=== PATIENT | female | born 1990 | race Caucasian/White ===

== ENCOUNTER 2017-05-23 02:38 | Outpatient (CLI) | payer OTHER ==
[~2017-05-23 02:38] MED LIST: PRENAT PO
[2017-05-23 03:03] VITALS: BP 93/52; PULSE 90; RESP 18
--- NOTE | 2017-05-23 04:10 | RADRPT ---
PROCEDURE: Abdominal ultrasound, limited. CLINICAL INDICATION: Abdominal pain. TECHNIQUE: Multiple real-time images were acquired of the patient's right upper abdomen utilizing a high resolution transducer. COMPARISON: None FINDINGS: The liver demonstrates normal echogenicity and size measuring 18.7 cm. There is no focal mass or in trahepatic biliary ductal dilatation. The portal vein is patent. The gallbladder is not distended. Multiple echogenic gallstones are identified. There is no pericholecystic fluid or gallbladder wa ll thickening. The common bile duct measures 3.6 mm in maximal dimension. The visualized portions of the pancreas are unremarkable. No free fluid is identified. The right kidney is normal size and echogenicity measuring 10.4 cm. There is no focal renal mass or echogenic calculus identified. There is no obstructive uropathy. IMPRESSION: Cholelithiasis without ultrasound evidence of cholecystitis. .Johny Pacheco MD, MD Date Time Electronically viewed and signed by .Johny Pacheco MD, MD on 05/23/2017 04:09 .T/
--- NOTE | 2017-05-23 04:12 | RADRPT ---
PROCEDURE: Obstetrical ultrasound, limited. CLINICAL INDICATION: Pelvic pain. TECHNIQUE: Multiple sonographic images of the pelvis were obtained using transabdominal technique . Images were obtained with godoy scale and color Doppler. The images were reviewed on a PACS works tation. COMPARISON: No prior studies are available for comparison. FINDINGS: There is a single living intrauterine gestation with the fetus in a breech presentation. hear t tones of 166 beats per minute are identified. The placenta is anterior in location, grade 1. The re is no evidence of placenta previa or abruption. Measurements were made in order to determine age. The results are as follows: BPD =7.21 cm HC =26.24 cm AC =25.38 cm FL =5.54 cm. Estimated gestational age of approximately 29 weeks and 1 day. The estimated date of delivery is 08/07/2017. The EFW = 1369 +/- 205 grams. Estimated weight percentage equals 47.7%. IMPRESSION: Single viable intrauterine gestation of approximately 29 weeks and 1 day, with an ultrasound IFRAH of 08/07/2017. .Johny Pacheco MD, MD Date Time Electronically viewed and signed by .Johny Pacheco MD, MD on 05/23/2017 04:11 .T/
[2017-05-23 04:49] LABS: BASOPHILS % 0.2 % (0.0-2.0); EOSINOPHILS # 0.1 10^3/ul (0.0-0.5); EOSINOPHILS % 0.9 % (0.0-7.0); HEMATOCRIT 28.6 % (37.0-47.0); HEMOGLOBIN 9.5 g/dl (12.0-16.0); LYMPHOCYTES # 1.6 10^3/ul (0.8-2.9); LYMPHOCYTES % 13.4 % (15.0-51.0); MEAN CORPUSCULAR HEMOGLOBIN 30.9 pg (29.0-33.0); MEAN CORPUSCULAR HGB CONC 33.2 g/dl (32.0-37.0); MEAN CORPUSCULAR VOLUME 93.2 fl (82.0-101.0); MEAN PLATELET VOLUME 11.9 fl (7.4-10.4); MONOCYTE # 0.7 10^3/ul (0.3-0.9); MONOCYTES % 5.8 % (0.0-11.0); NEUTROPHILS % 78.6 % (39.0-77.0); PLATELET COUNT 154 10^3/UL (140-415); RED BLOOD COUNT 3.07 10^6/ul (4.20-5.40); RED CELL DISTRIBUTION WIDTH 13.5 % (11.5-14.5)
[2017-05-23 05:08] LABS: ALBUMIN 3.3 g/dl (3.3-4.9); ALBUMIN/GLOBULIN RATIO 1.1; BILIRUBIN,INDIRECT 0.2 mg/dl (0-1.1); BILIRUBIN,TOTAL 0.2 mg/dl (0.2-1.3); CALCIUM 8.6 mg/dl (8.4-10.2); CREATININE 0.42 mg/dl (0.44-1.00); POTASSIUM 3.8 mmol/L (3.5-5.1); TOTAL PROTEIN 6.3 g/dl (6.1-8.1); URIC ACID 2.4 mg/dl (3.1-7.9)
[2017-05-23 06:16] LABS: ADD UMIC NO; UR ASCORBIC ACID NEGATIVE (NEGATIVE); UR BILIRUBIN (Dip) NEGATIVE (NEGATIVE); UR BLOOD (Dip) NEGATIVE (NEGATIVE); UR CLARITY CLEAR (CLEAR); UR COLOR YELLOW (YELLOW); UR GLUCOSE (Dip) NEGATIVE (NEGATIVE); UR KETONES (Dip) NEGATIVE (NEGATIVE); UR LEUKOCYTE ESTERASE (Dip) NEGATIVE Leu/ul (NEGATIVE); UR NITRITE (Dip) NEGATIVE (NEGATIVE); UR SPECIFIC GRAVITY (Dip) 1.006 (1.003-1.030); UR TOTAL PROTEIN (Dip) NEGATIVE (NEGATIVE); UR UROBILINOGEN (Dip) NEGATIVE (NEGATIVE)
--- NOTE | 2017-05-23 07:06 | TRIAGE ---
OB Triage Datetime Report Generated by CPN: 05/23/2017 07:05 Datetime: 05/23/2017 06:20 Stage of : OB Triage Monitor Mode: External Resting Tone Lytton: Relaxed Heart Rate FHR Baseline Rate: 135 Monitor Mode: External US FHR Baseline Changes: No Baseline Change Variability: Moderate 6-25 bpm Accelerations: 15X15 Decelerations: None Category: Category I Pain Assessment Pain Scale: 0 Pain Presence: None/Denies Pain Type: N/A Datetime: 05/23/2017 05:24 Stage of : OB Triage Monitor Mode: External Resting Tone Lytton: Relaxed Heart Rate FHR Baseline Rate: 140 Monitor Mode: External US Datetime: 05/23/2017 05:09 Quality: Mild Resting Tone Lytton: Relaxed Heart Rate FHR Baseline Rate: 140 Monitor Mode: External US Variability: Moderate 6-25 bpm Accelerations: 15X15 Decelerations: None Category: Category I Datetime: 05/23/2017 04:55 Stage of : OB Triage Monitor Mode: External Quality: Mild Pattern: Normal: <= 5 Contractions in 10 Minutes Resting Tone Lytton: Relaxed Heart Rate FHR Baseline Rate: 140 Monitor Mode: External US FHR Baseline Changes: No Baseline Change Variability: Moderate 6-25 bpm Accelerations: 15X15 Decelerations: None Category: Category I Pain Assessment Pain Scale: 0 Pain Presence: None/Denies Pain Type: N/A Datetime: 05/23/2017 04:04 Stage of : OB Triage Monitor Mode: External Quality: Mild Resting Tone Lytton: Relaxed Heart Rate FHR Baseline Rate: 140 Monitor Mode: External US Category: Category I Datetime: 05/23/2017 03:53 EGA: 29.0 Datetime: 05/23/2017 03:07 Stage of : OB Triage Datetime: 05/23/2017 03:00 Time of Arrival: 05/23/2017 02:38 Arrived By: Stretcher; Ambulance Arrived From: Home Chief Complaint: hx c/s x1 c/o sudden severe apigastric pain and nausea starting 0200 Movement: Present Contractions: Denies/Absent Rupture of Membranes: Denies Vaginal Bleeding: None Vaginal Discharge: Denies Recent Sexual Intercouse: Denies Abdominal Trauma: Not Applicable Patient Complaints: Nausea; Epigastric Pain Time Provider Notified: 05/23/2017 02:55 Provider Notified: Dr Hadadian Initial Plan: EFM,CBC,UA,CMP,AMYLASE,LIPASE,EFW,BPP,ABD U/S Datetime: 05/23/2017 02:56 Stage of : OB Triage Datetime: 05/23/2017 02:51 Stage of : OB Triage Maternal Assessment Level of Consciousness: Fully Conscious Headache: Denies Blurred Vision: No Respiratory Effort: Unlabored Nausea/Vomiting: Present RUQ Epigastric Pain: Present Facial Edema: None Labor Evaluation Frequency: placed Monitor Mode: External Resting Tone Lytton: Relaxed Monitor Mode: External US Comments: FHT 140 Pain Assessment Pain Scale: 0 Pain Presence: None/Denies Pain Type: N/A Pain Assessment Comments: States no pain at present but 8/10 15 min ago
--- NOTE | 2017-05-24 08:27 | PREOPHP ---
DATE OF ADMISSION: 05/23/2017 CHIEF COMPLAINT: Severe abdominal pain and nausea. HISTORY OF PRESENT ILLNESS: Shena Mitchell is a 27-year-old 2, para 1-0-0-1, with history of previous , single intrauterine at 28 weeks and 1 days, brought by ambulance to triage. She states she had severe vaginal bleeding about 1 hour before calling the ambulance. She states never had this kind of pain. She states good movement. She denies vomiting, headache, shortness of breath, chest pain, vaginal bleeding, or leakage of fluid. Further she also denies urinary symptoms. PAST MEDICAL HISTORY: None. PAST SURGICAL HISTORY: delivery. SOCIAL HISTORY: She denies tobacco, alcohol or drug use. FAMILY HISTORY: Negative. She denies breast, uterine, ovarian or colon cancer in her family. ALLERGIES: NO KNOWN DRUG ALLERGIES. MEDICATIONS: None. PHYSICAL EXAMINATION: VITAL SIGNS: Blood pressure 110/67, pulse rate 70-minutes, respiratory rate 16-minutes, temperature 97.9. GENERAL: Comfortable, no acute distress, appropriate mood and affect. HEART: Regular rate and rhythm. No murmur. LUNGS: Clear to auscultation bilateral. ABDOMEN: Soft, nontender. No guarding or rebound. FLANK: No CVA tenderness bilaterally. EXTREMITIES: Mild edema. No varicose veins and thigh or calf tenderness bilateral. Homans sign negative. GENITOURINARY: heart rate 135 BPM, moderate with deceleration. Contractions none. IMPRESSION: A 27-year-old 2, para 1-0-0-1, with severe abdominal pain which currently is resolved. CBC, CMP, amylase and lipase performed which all were normal. OB ultrasound performed which date was consistent with LMP. Abdominal ultrasound performed which revealed cholelithiasis without signs of cholecystitis. The patient currently is stable. A copy of laboratory results and ultrasound given to patient. I strongly recommend follow up with her primary [employer] [facility] and also a general surgeon. heart rate is category I and the patient has no uterine contractions. Signs and symptoms of labor, pre- eclampsia, and discussed in detail with patient. She expressed understanding. All of her questions answered. She is discharged home in stable condition with follow up with her primary OB. Dictated By: Sanya Luna MD /fnt/anyi /Document#: [id number]
== END 2017-05-23 06:45 | disposition home or self-care (01) ==
LOC: OBT 02:38 → L-D 02:38 → OBT 06:45
PROVIDERS: ATTEND Obstetrics & Gynecology
DX: O26.893 Other specified pregnancy related conditions, third trimester (principal); Z3A.28 28 weeks gestation of pregnancy; R10.9 Unspecified abdominal pain
CPT/HCPCS: 76705; 76815; 80053; 80076; 81003; 82150; 83690; 84560; 85025; Z7500; G0463

== ENCOUNTER 2017-07-26 05:16 | Inpatient (IN) | payer OTHER ==
[~2017-07-26] VITALS: Ht 149.9 cm; Wt 65.0 kg
[2017-07-26 05:21] VITALS: Ht 149.9 cm; Wt 65.0 kg
[2017-07-26] MEDS ORDERED: MISOPROSTOL 200 MCG TAB PR PRN ×2 (05:30→12:30)
[2017-07-26] MEDS ORDERED: OXYTOCIN 30 UNITS/LR 500 ML IV SCH (05:30)
[2017-07-26] MEDS ORDERED: METHYLERGONOVINE 0.2 MG INJ IM PRN ×2 (05:30→12:30)
[2017-07-26] MEDS ORDERED: OXYTOCIN 30 UNITS/LR 500 ML IV PRN ×2 (05:30→12:30)
[2017-07-26] MEDS ORDERED: CARBOPROST 250 MCG INJ IM PRN ×2 (05:30→12:30)
[2017-07-26] MEDS: LACTATED RINGER'S 1,000 ML IV SCH ×2 (06:14→08:41)
[2017-07-26 06:31] LABS: BASOPHILS % 0.2 % (0.0-2.0); EOSINOPHILS # 0.1 10^3/ul (0.0-0.5); EOSINOPHILS % 0.7 % (0.0-7.0); HEMATOCRIT 32.6 % (37.0-47.0); HEMOGLOBIN 11.4 g/dl (12.0-16.0); LYMPHOCYTES % 24.8 % (15.0-51.0); MEAN CORPUSCULAR HEMOGLOBIN 31.9 pg (29.0-33.0); MEAN CORPUSCULAR VOLUME 91.3 fl (82.0-101.0); MEAN PLATELET VOLUME 11.8 fl (7.4-10.4); MONOCYTE # 0.6 10^3/ul (0.3-0.9); NEUTROPHIL # 5.3 10^3/ul (1.6-7.5); NEUTROPHILS % 66.4 % (39.0-77.0); PLATELET COUNT 142 10^3/UL (140-415); RED BLOOD COUNT 3.57 10^6/ul (4.20-5.40); RED CELL DISTRIBUTION WIDTH 13.1 % (11.5-14.5)
[2017-07-26 06:44] LABS: INR 0.97; PROTIME 12.9 Sec (12.2-14.2)
[2017-07-26] MEDS ORDERED: EPHEDrine SULFATE 50 MG/5 ML SYG ONE (07:00)
[2017-07-26] MEDS ORDERED: METOCLOPRAMIDE 10 MG INJ ONE (07:24)
[2017-07-26] MEDS ORDERED: FENTAnyl 50 MCG/ML VIAL ONE (07:24)
[2017-07-26] MEDS ORDERED: PHENYLephrine (100 MCG/ML) 5ML SYG ONE (07:24)
[2017-07-26] MEDS ORDERED: morphine SULFATE/PF (10 MG/10 ML) INJ ONE (07:25)
[2017-07-26] MEDS ORDERED: OXYTOCIN 10 UNIT INJ ONE (07:25)
[2017-07-26 07:42] VITALS: BP 107/57; PULSE 97; RESP 18
[2017-07-26] MEDS ORDERED: ONDANSETRON 4 MG INJ IV STA (08:10)
[2017-07-26] MEDS ORDERED: CITRIC ACID/SODIUM CITRATE 15 ML CUP PO ONE (08:10)
[2017-07-26] MEDS ORDERED: CITRIC ACID/SODIUM CITRATE 15 ML CUP ONE (08:11)
[2017-07-26] MEDS ORDERED: ONDANSETRON 4 MG INJ ONE (08:11)
[2017-07-26] MEDS: CEFAZOLIN 2 GM/50 ML (PMX) 50 ML IV SCH ×2 (08:15→08:39)
[2017-07-26] MEDS ORDERED: DEXAMETHASONE 4 MG/ML 1 ML INJ ONE (08:48)
[2017-07-26] MEDS ORDERED: IPRATROPIUM (NEB) 0.5 MG/2.5 ML AMP HHN PRN (09:00)
[2017-07-26] MEDS ORDERED: HYDROmorphONE (0.2 MG/ML) 10ML SYG IV PRN ×3 (09:00)
[2017-07-26] MEDS ORDERED: morphine 4 MG/ML VIAL IV PRN (09:00)
[2017-07-26] MEDS ORDERED: ALBUTEROL 0.083% (NEB) 2.5 MG/3 ML AMP HHN PRN (09:00)
[2017-07-26] MEDS ORDERED: LABETALOL HCL 20MG INJ IV PRN (09:00)
[2017-07-26] MEDS ORDERED: DIPHENHYDRAMINE 50 MG INJ IV PRN ×2 (09:00)
[2017-07-26] MEDS ORDERED: MEPERIDINE 25 MG INJ IV PRN (09:00)
[2017-07-26] MEDS ORDERED: OXYCODONE/ACETAMINOPHEN (5/325) TAB PO PRN ×3 (09:00→12:30)
[2017-07-26] MEDS ORDERED: NALOXONE (0.4 MG/ML) INJ IV PRN (09:00)
[2017-07-26] MEDS ORDERED: EPHEDrine SULFATE 50 MG/5 ML SYG IV PRN (09:00)
[2017-07-26] MEDS ORDERED: TRIMETHOBENZAMIDE 100 MG/ML VIAL IM PRN ×2 (09:00)
[2017-07-26] MEDS ORDERED: hydrALAzine 20 MG INJ IV PRN (09:00)
[2017-07-26] MEDS ORDERED: ONDANSETRON 4 MG INJ IV PRN ×2 (09:00)
[2017-07-26] MEDS ORDERED: NALBUPHINE HCL (10 MG/1 ML) INJ IV PRN (09:00)
[2017-07-26] MEDS ORDERED: FENTAnyl 50 MCG/ML VIAL IV PRN ×3 (09:00)
[2017-07-26] MEDS ORDERED: morphine 2 MG INJ IV PRN (09:00)
[2017-07-26] MEDS ORDERED: MIDAZOLAM 1 MG/ML 2 ML INJ ONE (09:06)
--- NOTE | 2017-07-26 09:23 | HP ---
Date/Time of Note Date/Time of Note DATE: 07/26/17 TIME: 08:31 OB - History Hx of Present Free Text/Dictation 27 years old female with EDC August 02, 2017 admitted to [facility] at 39 weeks gestation with a history of previous section, This patient has been under the care of the [facility] ,and her not complicated with gestational diabetes -induced hypertension pertinent findings during her care she has gallstones asymptomatic and mild anemia. Estimated Due Date: Aug 02, 2017 : 2 Para: 1 Care: Good Care Ultrasounds: Normal mid trimester US Obstetrical Complications: None Medical Complications: None Past Family/Social History * Past Medical, Surgical, Family and Obstetric Histories reviewed from chart. Rubella: immune RPR/VDRL: Negative GBS Status: Negative HBsAG: Negative OB Admission Exam Vital Signs Vital Signs Vital Signs Date Time Temp Pulse Resp B/P Pulse Ox O2 Delivery O2 Flow Rate FiO2 07/26/17 07:42 98.1 97 18 107/57 Room Air Physical Exam HEENT: WNL Heart: Rhythm Normal Lungs: Clear, Equal Abdomen: WNL Reflexes: Normal Cervical Dilatation: None Station: -2 Membranes: Intact Heart Rate: 130's Accelerations: Accelerations Present Decelerations: No Decelerations Varibility: Moderate Contractions on Admission: None Last 72 hours Lab Results CBC & BMP 07/26/17 06:14 OB Assessment/Plan Reason for admission: other (39 weeks history of previous admitted at 39 weeks gestation for repeat ) Other plan: 27 years old EDC August 02, 2017 history of previous admitted at 39 weeks gestation for repeat section complication of the surgery including but not limited bowel bladder injury infection hemorrhage wound hematoma wound infection has been discussed with the patient and she would like to proceed with the operation DURGA HOWARD MD Jul 26, 2017 09:23
--- NOTE | 2017-07-26 09:31 | OPR ---
Operative Report Planned Procedure Procedure date Jul 26, 2017 Procedure(s) Repeat section Performed by see signature line Solid Fiber Paster Operator Dr. NASIR HILL Anesthesiologist: Nitish Castaneda M.D. Pre-procedure diagnosis 39 weeks history of previous Anesthesia Type: spinal Post-Procedure Post-procedure diagnosis 39 weeks history of previous admitted to undergo repeat Findings Live Baby girl 8 and 9 Estimated Blood Loss: other (600 cc) Specimen(s) none Grafts/Implant(s) none Complication(s) none Pt Condition post procedure: stable Procedure Description Under satisfactory spinal anesthesia patient prepped and draped and placed in supine position. Pfannenstiel incision was made. Incision carried through the subcutaneous tissue. Fascia incised to the length of incision. Rectus muscle divided in midline. Peritoneum exposed and entered to a vertical incision. Exploration of abdomen revealed [gravid uterus at term normal-appearing tubes and ovaries.] Bladder flap was developed. Transverse incision was made in the lower segment of the uterus. Amniotic sac ruptured, [clear amniotic fluid noted. ] Live baby girl was delivered from unengaged vertex.Naso oropharyngeal suction was performed. Baby handed to the team for immediate attention. Patient received 20 units of Pitocin. Placenta delivered manually intact. Uterine cavity cleaned with a wet sponge and drainage established. Uterus closed in 2 layers using Monocryl #1 in continuous fashion. Peritoneal cavity irrigated with warm saline. Sponge needle instrument reported to be correct. Abdominal peritoneum closed with 2-0 chromic catgut continuously. Fascia closed with #1 PDS in a continuous fashion. Subcutaneous tissue irrigated with warm saline and approximated with 2-0 chromic catgut skin closed with N sorb. Estimated blood loss [600 cc]. Urine bag containing [200] mL of [clear] urine. Patient tolerated procedure well and transferred to recovery room in good condition. DURGA HOWARD MD Jul 26, 2017 09:31
[2017-07-26 12:10] VITALS: BP 117/66; PULSE 71; RESP 18
[2017-07-26] MEDS ORDERED: LANOLIN 7 GM TUBE TOP PRN (12:30)
[2017-07-26] MEDS ORDERED: HYDROCODONE/APAP (5/325) TAB PO PRN ×2 (12:30)
[2017-07-26] MEDS ORDERED: CEFAZOLIN 1 GM/50 ML (PMX) 50 ML IVPB SCH (12:30)
[2017-07-26 13:00] VITALS: BP 128/82; PULSE 76; RESP 18
[2017-07-26] MEDS: OXYTOCIN 30 UNITS/LR 500 ML IV SCH ×3 (14:06→22:25)
[2017-07-26 16:30] VITALS: BP 100/64; PULSE 103; RESP 16
[2017-07-26 20:25] VITALS: BP 97/53; PULSE 71; RESP 18
[2017-07-27] MEDS: OXYTOCIN 30 UNITS/LR 500 ML IV SCH ×2 (00:20→04:20)
[2017-07-27 00:25] VITALS: BP 102/66; PULSE 80; RESP 18
[2017-07-27] MEDS: KETOROLAC 30 MG INJ IV PRN ×2 (01:07→08:53)
[2017-07-27] MEDS: LACTATED RINGER'S 1,000 ML IV SCH ×2 (02:16→10:00)
[2017-07-27 04:20] VITALS: BP 96/55; PULSE 73; RESP 17
[2017-07-27] MEDS: IBUPROFEN 600 MG TAB PO SCH ×3 (06:00→17:32)
[2017-07-27 08:20] VITALS: BP 99/55; PULSE 70; RESP 17
[2017-07-27] MEDS: SENNA/DOCUSATE NA (8.6MG/50MG) TAB PO SCH ×2 (08:58→21:11)
[2017-07-27 09:55] LABS: BASOPHILS % 0.3 % (0.0-2.0); EOSINOPHILS % 0.4 % (0.0-7.0); HEMATOCRIT 28.4 % (37.0-47.0); HEMOGLOBIN 9.8 g/dl (12.0-16.0); LYMPHOCYTES # 1.9 10^3/ul (0.8-2.9); MEAN CORPUSCULAR HEMOGLOBIN 31.5 pg (29.0-33.0); MEAN CORPUSCULAR HGB CONC 34.5 g/dl (32.0-37.0); MEAN CORPUSCULAR VOLUME 91.3 fl (82.0-101.0); MONOCYTE # 0.6 10^3/ul (0.3-0.9); NEUTROPHIL # 7.7 10^3/ul (1.6-7.5); NEUTROPHILS % 74.7 % (39.0-77.0); PLATELET COUNT 146 10^3/UL (140-415); RED BLOOD COUNT 3.11 10^6/ul (4.20-5.40); RED CELL DISTRIBUTION WIDTH 13.2 % (11.5-14.5); WHITE BLOOD COUNT 10.3 10^3/ul (4.8-10.8)
--- NOTE | 2017-07-27 10:31 | QN ---
Documentation Comment Post day 1 Afebrile Vital signs are stable Abdomen soft incision dry,, bowel sounds present lochia normal,, extremities normal, ambulation encouraged. DURGA HOWARD MD Jul 27, 2017 10:31
[2017-07-27] MEDS: OXYCODONE/ACETAMINOPHEN (5/325) TAB PO PRN ×3 (12:34→22:25)
[2017-07-27 16:00] VITALS: BP 106/62; PULSE 89; RESP 17
[2017-07-27 20:00] VITALS: BP 103/60; PULSE 89; RESP 18
[2017-07-28] MEDS: OXYCODONE/ACETAMINOPHEN (5/325) TAB PO PRN ×3 (02:04→22:17)
[2017-07-28] MEDS: IBUPROFEN 600 MG TAB PO SCH ×5 (02:04→23:48)
[2017-07-28 04:00] VITALS: BP 98/52; PULSE 67; RESP 18
[2017-07-28 08:30] VITALS: BP 103/49; PULSE 70; RESP 20
[2017-07-28] MEDS: SENNA/DOCUSATE NA (8.6MG/50MG) TAB PO SCH ×2 (08:43→21:04)
--- NOTE | 2017-07-28 09:52 | QN ---
Documentation Comment Post day 2 Afebrile Vital signs are stable Abdomen soft, incision dry, bowel sounds present, had bowel movement, extremities normal, plan of a.m. discharge discussed. DURGA HOWARD MD Jul 28, 2017 09:52
[2017-07-28 15:57] VITALS: BP 103/56; PULSE 83; RESP 18
[2017-07-28 20:00] VITALS: BP 100/58; PULSE 88; RESP 18
[2017-07-29 04:00] VITALS: BP 105/72; PULSE 62; RESP 18
[2017-07-29] MEDS: IBUPROFEN 600 MG TAB PO SCH ×2 (05:31→13:51)
[2017-07-29 07:15] VITALS: BP 111/73; PULSE 69; RESP 19
[2017-07-29] MEDS: SENNA/DOCUSATE NA (8.6MG/50MG) TAB PO SCH (09:00)
[2017-07-29] MEDS ORDERED: DIPHTH/TET/ACEL PERTUSS (ADULT) 0.5 ML VIAL IM* ONE (09:00)
--- NOTE | 2017-07-29 11:30 | DS ---
Date/Time of Note Date/Time of Note DATE: 07/29/17 TIME: 11:25 Obstetrical Discharge Record Final Diagnosis Final Diagnosis: Term delivered Section Section: Repeat Complications Augmentation: No Induction: No Rupture of Membranes: No Condition on Discharge Physical Assessment Last Vitals: Current Medications Medications (Trade) Dose Ordered Sig/Castro Route PRN Reason Start Time Stop Time Status Last Admin Dose Admin Lactated Ringer's 1,000 ml @ 125 mls/hr Q8H IV 07/26/17 05:18 07/26/17 12:29 DC 07/26/17 06:14 Cefazolin Sodium/ Dextrose 50 ml @ 100 mls/hr ONCE IV 07/26/17 05:30 07/26/17 12:29 DC 07/26/17 08:15 Oxytocin/Lactated Ringer's 500 ml @ 125 mls/hr ONCE IV 07/26/17 05:30 07/26/17 12:29 DC 07/26/17 09:52 Oxytocin/Lactated Ringer's 500 ml @ 0 mls/hr ONCE PRN IV For Hemorrhage Management 07/26/17 05:30 07/26/17 12:29 DC Methylergonovine Maleate (Methergine) 0.2 mg ONCE PRN IM VAGINAL BLEEDING 07/26/17 05:30 07/26/17 12:29 DC Carboprost Tromethamine (Hemabate) 250 mcg ONCE PRN IM VAGINAL BLEEDING 07/26/17 05:30 07/26/17 12:29 DC Misoprostol (Cytotec) 1,000 mcg ONCE PRN DE VAGINAL BLEEDING 07/26/17 05:30 07/26/17 12:29 DC Fentanyl (Sublimaze) 100 mcg STK-MED ONCE .ROUTE 07/26/17 07:24 07/26/17 07:25 DC Phenylephrine HCl (Manish-Synephrine Inj Syg) 500 mcg STK-MED ONCE .ROUTE 07/26/17 07:24 07/26/17 07:25 DC Metoclopramide HCl (Reglan) 10 mg STK-MED ONCE .ROUTE 07/26/17 07:24 07/26/17 07:25 DC Oxytocin (Oxytocin) 10 units STK-MED ONCE .ROUTE 07/26/17 07:25 07/26/17 07:26 DC Morphine Sulfate (Duramorph) 10 mg STK-MED ONCE .ROUTE 07/26/17 07:25 07/26/17 07:26 DC Citric Acid/ Sodium Citrate (Bicitra) 30 ml ONCE ONCE PO 07/26/17 08:10 07/26/17 08:12 DC 07/26/17 08:15 Ondansetron HCl (Zofran Inj) 4 mg STK-MED ONCE .ROUTE 07/26/17 08:11 07/26/17 08:12 DC Ondansetron HCl (Zofran Inj) 4 mg ONCE STAT IV 07/26/17 08:10 07/26/17 08:13 DC 07/26/17 08:15 Citric Acid/ Sodium Citrate (Bicitra) 15 ml STK-MED ONCE .ROUTE 07/26/17 08:11 07/26/17 08:12 DC Hydromorphone HCl (Dilaudid (Rec)) 0.2 mg PACU ORDER PRN IV MILD PAIN LEVEL 1-3 07/26/17 09:00 07/26/17 12:29 DC Hydromorphone HCl (Dilaudid (Rec)) 0.4 mg PACU ORDER PRN IV MODERATE PAIN LEVEL 4-6 07/26/17 09:00 07/26/17 12:29 DC Hydromorphone HCl (Dilaudid (Rec)) 0.6 mg PACU ORDER PRN IV SEVERE PAIN LEVEL 7-10 07/26/17 09:00 07/26/17 12:29 DC Fentanyl (Sublimaze) 25 mcg PACU ORDER PRN IV MILD PAIN LEVEL 1-3 07/26/17 09:00 07/26/17 12:29 DC Fentanyl (Sublimaze) 50 mcg PACU ODER PRN IV MODERATE PAIN LEVEL 4-6 07/26/17 09:00 07/26/17 12:29 DC Fentanyl (Sublimaze) 75 mcg PACU ORDER PRN IV SEVERE PAIN LEVEL 7-10 07/26/17 09:00 07/26/17 12:29 DC Oxycodone/ Acetaminophen (Percocet (5/ 325)) 1 tab PACU ORDER PRN PO PAIN LEVEL 1-5 07/26/17 09:00 07/26/17 16:00 DC Oxycodone/ Acetaminophen (Percocet (5/ 325)) 2 tab PACU ORDER PRN PO PAIN LEVEL 6-10 07/26/17 09:00 07/26/17 16:00 DC Ondansetron HCl (Zofran Inj) 4 mg PACU ORDER PRN IV NAUSEA AND/OR VOMITING 07/26/17 09:00 07/26/17 12:29 DC Trimethobenzamide HCl (Tigan) 200 mg PACU ORDER PRN IM NAUSEA AND/OR VOMITING 07/26/17 09:00 07/26/17 12:29 DC Labetalol HCl (Labetalol) 5 mg PACU ORDER PRN IV HIGH BLOOD PRESSURE 07/26/17 09:00 07/26/17 12:29 DC Hydralazine HCl (Apresoline) 5 mg PACU ORDER PRN IV HIGH BLOOD PRESSURE 07/26/17 09:00 07/26/17 12:29 DC Ephedrine Sulfate 5 mg PACU ORDER PRN IV MAP LESS THAN 60 07/26/17 09:00 07/26/17 12:29 DC Albuterol (Proventil 0.083% (Neb)) 2.5 mg PACU ORDER PRN HHN WHEEZING 07/26/17 09:00 07/26/17 16:00 DC Ipratropium [place] (Atrovent 0.02% (Neb)) 0.5 mg PACU ORDER PRN HHN WHEEZING 07/26/17 09:00 07/26/17 12:29 DC Meperidine HCl (Demerol) 25 mg PACU ORDER PRN IV POST-OP RIGORS 07/26/17 09:00 07/26/17 12:29 DC Diphenhydramine HCl (Benadryl) 25 mg PACU ORDER PRN IV PRURITUS 07/26/17 09:00 07/26/17 16:00 DC Naloxone HCl (Narcan) 0.1 mg Q2M PRN IV FOR RESP RATE 8 OR LESS 07/26/17 09:00 07/27/17 08:59 DC Ketorolac Tromethamine (Toradol) 30 mg Q6H PRN IV PAIN 07/26/17 09:00 07/27/17 08:59 DC 07/27/17 08:53 Morphine Sulfate (morphine) 2 mg Q3H PRN IV PAIN LEVEL 1-5 07/26/17 09:00 07/27/17 08:59 DC Morphine Sulfate (morphine) 4 mg Q3H PRN IV PAIN LEVEL 6-10 07/26/17 09:00 07/27/17 08:59 DC Diphenhydramine HCl (Benadryl) 25 mg Q6H PRN IV ITCHING 07/26/17 09:00 07/27/17 08:59 DC 07/26/17 12:51 Nalbuphine HCl (Nubain) 5 mg ONCE PRN IV ITCHING 07/26/17 09:00 07/26/17 12:29 DC Ondansetron HCl (Zofran Inj) 4 mg Q6H PRN IV NAUSEA AND/OR VOMITING 07/26/17 09:00 07/27/17 08:59 DC Trimethobenzamide HCl (Tigan) 200 mg Q6H PRN IM NAUSEA AND/OR VOMITING 07/26/17 09:00 07/27/17 08:59 DC Miscellaneous Information (* Miscellaneous Pharmacy Order) Duramorph: 0.2 mg Spi... GIVEN XX 07/26/17 09:00 07/26/17 12:29 DC Dexamethasone (Decadron) 4 mg STK-MED ONCE .ROUTE 07/26/17 08:48 07/26/17 08:49 DC Midazolam HCl (Versed) 2 mg STK-MED ONCE .ROUTE 07/26/17 09:06 07/26/17 09:07 DC Acetaminophen/ Hydrocodone Bitart (Meta (5/325)) 1 tab Q4H PRN PO PAIN LEVEL 4-6 07/26/17 12:30 Acetaminophen/ Hydrocodone Bitart (Meta (5/325)) 2 tab Q4H PRN PO PAIN LEVEL 7-10 07/26/17 12:30 Oxycodone/ Acetaminophen (Percocet (5/ 325)) 1 tab Q4H PRN PO PAIN LEVEL 4-6 07/26/17 12:30 Oxycodone/ Acetaminophen (Percocet (5/ 325)) 2 tab Q4H PRN PO PAIN LEVEL 7-10 07/26/17 12:30 07/28/17 22:17 Ibuprofen (Motrin) 600 mg Q6 PO 07/27/17 06:00 07/29/17 05:31 Simethicone (Mylicon) 160 mg Q8H PRN PO DISTENSION/GAS/BLOATING 07/26/17 12:30 Senna/Docusate Sodium (Senokot-S) 1 tab BID PO 07/27/17 09:00 07/28/17 21:04 Lanolin (Gyy-B-Qdxano) 1 applic BEDSIDE MEDICATION PRN TOP BEDSIDE FOR ERASMO TO NIPPLES 07/26/17 12:30 07/26/17 12:52 Diphtheria/ Tetanus/Acell Pertussis 0.5 ml 0.5 ml ONCE ONCE IM* 07/29/17 09:00 07/29/17 09:01 DC Oxytocin/Lactated Ringer's 500 ml @ 0 mls/hr ONCE PRN IV For Hemorrhage Management 07/26/17 12:30 Methylergonovine Maleate (Methergine) 0.2 mg ONCE PRN IM VAGINAL BLEEDING 07/26/17 12:30 Carboprost Tromethamine (Hemabate) 250 mcg ONCE PRN IM VAGINAL BLEEDING 07/26/17 12:30 Misoprostol 1000 mcg 1,000 mcg ONCE PRN DE VAGINAL BLEEDING 07/26/17 12:30 Cefazolin Sodium 50 ml @ 100 mls/hr ONCE IVPB 07/26/17 12:30 07/26/17 12:59 DC 07/26/17 12:52 Oxytocin/Lactated Ringer's 500 ml @ 125 mls/hr Q4H IV 07/26/17 12:20 07/27/17 04:28 DC 07/26/17 22:25 Lactated Ringer's (Lr) 1,000 ml @ 125 mls/hr Q8H IV 07/27/17 02:00 07/27/17 13:53 DC 07/27/17 02:16 Ephedrine Sulfate 50 mg STK-MED ONCE .ROUTE 07/26/17 07:00 07/27/17 17:53 DC Voiding: Yes Bowel Movement: Yes Breast: Soft, non-tender Abdomen and Incision: Healing well Episiotomy: Prescription given for pain lanolin cream was recommended to be used on her nipples The will be seen by the scientific research manager possibly discharge home with the mother Calf Tenderness: No Patient Condition: Good MCKENNA VALERIO MD Jul 29, 2017 11:30
== END 2017-07-29 15:40 | disposition home or self-care (01) | DRG 766 ==
LOC: L-D 05:16 → PP1 12:21
PROVIDERS: ADMIT Obstetrics & Gynecology; ATTEND Obstetrics & Gynecology
PROC: 10D00Z1 Extraction of Products of Conception, Low, Open Approach (ICD-10-PCS; principal; 2017-07-26 07:30)
DX: O34.219 Maternal care for unspecified type scar from previous cesarean delivery (principal); Z37.0 Single live birth; Z3A.39 39 weeks gestation of pregnancy
CPT/HCPCS: 85025; 85610; 85730; 86592; 86850; 86900; 86901; 87340; 90715; 94760; 99464; J0690; J1100; J1200; J1885; J2210; J2250; J2274; J2370; J2405; J2590; J2765; J3010; J7120

== ENCOUNTER 2017-08-03 22:45 | Emergency (ER) | payer OTHER ==
[~2017-08-03] VITALS: Ht 157.5 cm; Wt 55.7 kg
[2017-08-03 22:48] VITALS: Ht 157.5 cm; Wt 55.7 kg
[2017-08-03] MEDS ORDERED: ONDANSETRON 4 MG INJ IV STA (23:01)
[2017-08-03] MEDS ORDERED: morphine 4 MG/ML VIAL IV STA (23:01)
[2017-08-03] MEDS ORDERED: SOD CHLORIDE 0.9% 1,000 ML IV STA (23:01)
[2017-08-03 23:58] LABS: BASOPHILS % 0.3 % (0.0-2.0); EOSINOPHILS # 0.2 10^3/ul (0.0-0.5); EOSINOPHILS % 1.2 % (0.0-7.0); HEMATOCRIT 36.9 % (37.0-47.0); HEMOGLOBIN 12.5 g/dl (12.0-16.0); LYMPHOCYTES % 15.4 % (15.0-51.0); MEAN CORPUSCULAR HEMOGLOBIN 31.2 pg (29.0-33.0); MEAN CORPUSCULAR HGB CONC 33.9 g/dl (32.0-37.0); MEAN PLATELET VOLUME 11.9 fl (7.4-10.4); MONOCYTE # 0.8 10^3/ul (0.3-0.9); MONOCYTES % 5.8 % (0.0-11.0); PLATELET COUNT 308 10^3/UL (140-415); RED BLOOD COUNT 4.01 10^6/ul (4.20-5.40); RED CELL DISTRIBUTION WIDTH 12.3 % (11.5-14.5); WHITE BLOOD COUNT 13.1 10^3/ul (4.8-10.8)
--- NOTE | 2017-08-04 00:13 | RADRPT ---
PROCEDURE: LIMITED ABDOMINAL ULTRASOUND OF GALL BLADDER CLINICAL INDICATION: 27 years of age, female. Abdominal pain. TECHNIQUE: Multiple real-time longitudinal and transverse images of the gallbladder and the bile d ucts were acquired utilizing a curved array transducer. Images were reviewed on a high-resolution [facility] workstation. COMPARISON: None available. FINDINGS: Pancreas: Visualized portions normal. Liver appearance: Normal. Liver length: 19.9 cm Bile Ducts: No intrahepatic or extrahepatic biliary ductal dilatation. CBD: 0.95 cm. Gallbladder: Multiple stones layer dependently in the gallbladder. Gallbladder wall measures 2.9 mm. Main portal vein is patent with hepatopetal flow. Right kidney length: 11.2 cm. Right kidney appearance: Normal. Other: None. IMPRESSION: 1. Cholelithiasis without evidence of gallbladder wall inflammation. [employer] does not indicate i f there is point tenderness over the gallbladder. Recommend clinical correlation to rule out clinica l cholecystitis. 2. Dilated common bile duct. Recommend correlation with liver tests to evaluate for potential biliar y stasis. MRCP could better evaluate for common duct stones. 3. Mild hepatomegaly. RPTAT: HCTS Physician Emanuel Date Time Electronically viewed and signed by Physician Emanuel on 08/04/2017 00:13 /
[2017-08-04 00:58] LABS: ALBUMIN 3.5 g/dl (3.3-4.9); ALBUMIN/GLOBULIN RATIO 1.12; BILIRUBIN,INDIRECT 0.4 mg/dl (0-1.1); BILIRUBIN,TOTAL 0.4 mg/dl (0.2-1.3); CALCIUM 8.6 mg/dl (8.4-10.2); CREATININE 0.63 mg/dl (0.44-1.00); INR 1.06; POTASSIUM 3.7 mmol/L (3.5-5.1); PROTIME 13.8 Sec (12.2-14.2); PT RATIO 1.1; TOTAL PROTEIN 6.6 g/dl (6.1-8.1)
[2017-08-04 00:59] LABS: PARTIAL THROMBOPLASTIN TIME 31.7 Sec (25.0-35.0)
[2017-08-04] MEDS ORDERED: ONDA4TAB14 PO (01:48)
[2017-08-04] MEDS ORDERED: HYDR-906 PO (01:48)
[2017-08-04 02:00] VITALS: BP 121/82; PULSE 70; RESP 18; TEMP 97.8
--- NOTE | 2017-08-04 02:57 | ERD ---
ER Documentation Chief Complaint Chief Complaint RUQ abd pain since 40 minutes ago, hx- gall stones, sp csection 1 week ago (CEE CARBONE PA-C) HPI This patient is a 27-year-old female with past medical history of gallstones presenting to the emergency department with complaints of right upper quadrant pain which onset suddenly 40 minutes ago after a fatty meal. Symptoms are constant, 10 out of 10 on the pain scale. Associated with vomiting. No fevers , chills, or other symptoms reported at this time. (CEE CARBONE PA-C) ROS All systems reviewed and are negative except as per history of present illness. (CEE CARBONE PA-C) Medications Home Meds Active Scripts Ondansetron (Ondansetron Odt) 4 Mg Tab.rapdis, 4 MG PO Q6H Y for NAUSEA AND/OR VOMITING, #15 TAB Prov:CEE CARBONE PA-C 08/04/17 Hydrocodone/Acetaminophen (Cameron 5-325 Tablet) 1 Each Tablet, 1 TAB PO Q6H Y for PAIN, #15 TAB Prov:CEE CARBONE PA-C 08/04/17 Reported Medications Multivit/Min/Fol Ac/Iron/Pren* ( S*) 1 Tab Tab, 1 TAB PO DAILY, TAB 08/12/15 Allergies Allergies: Coded Allergies: No Known Allergy (Unverified , 07/26/17) PMhx/Soc Hx Miscellaneous Medical Probl: Yes (Gallstones) Hx Alcohol Use: No Hx Substance Use: No Hx Tobacco Use: No Smoking Status: Never smoker (CEE CARBONE PA-C) Physical Exam Vitals Vital Signs Date Time Temp Pulse Resp B/P Pulse Ox O2 Delivery O2 Flow Rate FiO2 08/04/17 02:00 97.8 70 18 121/82 Room Air 08/03/17 22:48 99.2 57 20 107/57 100 (AGATHA THOMPSON MD) Physical Exam Const: Nontoxic female actively vomiting. Head: Atraumatic Eyes: Normal Conjunctiva ENT: Normal External Ears, Nose and Mouth. Neck: Full range of motion..~ No meningismus. Resp: Clear to auscultation bilaterally Cardio: Regular rate and rhythm, no murmurs Abd: She is actively vomiting. Abdomen is soft. Tenderness palpation of the right upper quadrant. Positive Mishra sign. No distention. No evidence of gross peritonitis. Normal bowel sounds Skin: No petechiae or rashes Ext: No cyanosis, or edema Neur: Awake and alert Psych: Normal Mood and Affect (CEE CARBONE PA-C) Result Diagram: 08/03/17 2313 08/03/17 0018 Results 24 hrs Laboratory Tests Test 08/03/17 00:18 08/03/17 23:13 Prothrombin Time 13.8Sec Prothrombin Time Ratio 1.1 INR International Normalized Ratio 1.06 Activated Partial Thromboplast Time 31.7Sec Sodium Level 143mmol/L Potassium Level 3.7mmol/L Chloride Level 109mmol/L Carbon Dioxide Level 25mmol/L Anion Gap 13 Blood Urea Nitrogen 12mg/dl Creatinine 0.63mg/dl Glucose Level 112mg/dl Calcium Level 8.6mg/dl Total Bilirubin 0.4mg/dl Direct Bilirubin 0.00mg/dl Indirect Bilirubin 0.4mg/dl Aspartate Amino Transf (AST/SGOT) 32IU/L Alanine Aminotransferase (ALT/SGPT) 42IU/L Alkaline Phosphatase 112IU/L Total Protein 6.6g/dl Albumin 3.5g/dl Globulin 3.10g/dl Albumin/Globulin Ratio 1.12 Lipase 89U/L White Blood Count 13.110^3/ul Red Blood Count 4.0110^6/ul Hemoglobin 12.5g/dl Hematocrit 36.9% Mean Corpuscular Volume 92.0fl Mean Corpuscular Hemoglobin 31.2pg Mean Corpuscular Hemoglobin Concent 33.9g/dl Red Cell Distribution Width 12.3% Platelet Count 55597^3/UL Mean Platelet Volume 11.9fl Neutrophils % 77.0% Lymphocytes % 15.4% Monocytes % 5.8% Eosinophils % 1.2% Basophils % 0.3% Nucleated Red Blood Cells % 0.0/100WBC Neutrophils # 10.010^3/ul Lymphocytes # 2.010^3/ul Monocytes # 0.810^3/ul Eosinophils # 0.210^3/ul Basophils # 0.010^3/ul Nucleated Red Blood Cells # 0.010^3/ul Current Medications Medications (Trade) Dose Ordered Sig/Castro Route PRN Reason Start Time Stop Time Status Last Admin Dose Admin Sodium Chloride (NS) 1,000 ml @ 1,000 mls/hr Q1H STAT IV 08/03/17 23:01 08/04/17 00:00 DC 08/03/17 23:25 Morphine Sulfate (morphine) 4 mg ONCE STAT IV 08/03/17 23:01 08/03/17 23:02 DC 08/03/17 23:24 Ondansetron HCl (Zofran Inj) 4 mg ONCE STAT IV 08/03/17 23:01 08/03/17 23:02 DC 08/03/17 23:24 (AGATHA THOMPSON MD) Procedures/MDM Patient is a pleasant 27-year-old female presenting to the emergency department with complaints of right upper quadrant pain and vomiting. The patient was placed on a stretcher and IV line established. She was given IV fluids 1 L, IV morphine, IV Zofran. She was feeling significantly improved on reevaluation approximately 20 minutes after administration of medicine. On review of laboratory results: CBC showed mild leukocytosis at 13.1. No evidence of anemia. Chemistry panel was within normal limits. Lipase was not elevated. Imaging results: Gallbladder ultrasound did show cholelithiasis without evidence of gallbladder wall inflammation. Dilated common bile duct. Recommend correlation with liver test to evaluate for potential biliary stasis. MRCP could better evaluate for common duct stones. Mild hepatomegaly. On receiving results from imaging studies and laboratory studies, I discussed the results with attending physician, Dr. Bharat Thompson, who is in agreement of the ED course to this point. Due to the patient's pain stabilizing in the department, and with her being on board with the plan, he did recommend close follow-up with general surgery to have further consultation. The patient's questions and concerns were addressed. She was hemodynamically stable prior to discharge. She was advised to have close follow-up with general surgery within the next 1-2 days as well as her primary care physician she is to return immediately for any new or worsening symptoms. She was discharged home stable with prescriptions. No evidence of life-threatening pathology at time of discharge. PROCEDURE: LIMITED ABDOMINAL ULTRASOUND OF GALL BLADDER CLINICAL INDICATION: 27 years of age, female. Abdominal pain. TECHNIQUE: Multiple real-time longitudinal and transverse images of the gallbladder and the bile ducts were acquired utilizing a curved array transducer. Images were reviewed on a high-resolution PACS workstation. COMPARISON: None available. FINDINGS: Pancreas: Visualized portions normal. Liver appearance: Normal. Liver length: 19.9 cm Bile Ducts: No intrahepatic or extrahepatic biliary ductal dilatation. CBD: 0.95 cm. Gallbladder: Multiple stones layer dependently in the gallbladder. Gallbladder wall measures 2.9 mm. Main portal vein is patent with hepatopetal flow. Right kidney length: 11.2 cm. Right kidney appearance: Normal. Other: None. IMPRESSION: 1. Cholelithiasis without evidence of gallbladder wall inflammation. Tow Driver does not indicate if there is point tenderness over the gallbladder. Recommend clinical correlation to rule out clinical cholecystitis. 2. Dilated common bile duct. Recommend correlation with liver tests to evaluate for potential biliary stasis. MRCP could better evaluate for common duct stones. 3. Mild hepatomegaly. RPTAT: HCTS Physician Emanuel Date Time Electronically viewed and signed by Physician Emanuel on 08/04/2017 00: 13 (CEE CARBONE PA-C) I evaluated this patient, a 27-year-old female with right upper quadrant pain in the setting of known gallstones. Her ultrasound did not show evidence of cholecystitis. There was dilated common bile duct, but the patient's LFTs including bilirubin and alk phos were within normal limits. Approximately 2 hours after receiving pain medication, the patient stated that she has had complete resolution of pain and no recurrence. She has a completely benign abdominal exam. She is able to tolerate oral intake without recurrence of pain or vomiting. I have low suspicion for choledocholithiasis due to the absence of symptoms at this time. I cannot exclude early biliary obstruction. The patient has no evidence of pancreatitis. Patient was advised on the need for close follow-up with your PMD for referral to gastroenterology and surgeon. I recommended having either repeat ultrasound and/or repeat LFTs performed within the next few days. I advised her on strict return precautions including for return of pain, vomiting, fever, jaundice or other concerns. Patient understood the importance of follow-up and return precautions. She is counseled on eating a low-fat diet. (AGATHA THOMPSON MD) Departure Diagnosis: Primary Impression: Gall stones Condition: Fair Patient Instructions: Gallstones Referrals: ELLY ARIZMENDI MD, DANIEL S M.D. HEMMATI, SAID MD KOSARI, KAMBIZ M.D. [facility] [place] YOU HAVE RECEIVED A MEDICAL SCREENING EXAM AND THE RESULTS INDICATE THAT YOU DO NOT HAVE A CONDITION THAT REQUIRES URGENT TREATMENT IN THE EMERGENCY DEPARTMENT. FURTHER EVALUATION AND TREATMENT OF YOUR CONDITION CAN WAIT UNTIL YOU ARE SEEN IN YOUR DOCTORS OFFICE WITHIN THE NEXT 1-2 DAYS. IT IS YOUR RESPONSIBILITY TO MAKE AN APPOINTMENT FOR FOLOW-UP CARE. IF YOU HAVE A PRIMARY DOCTOR --you should call your primary doctor and schedule and appointment IF YOU DO NOT HAVE A PRIMARY DOCTOR YOU CAN CALL OUR PHYSICIAN REFERRAL HOTLINE AT . IF YOU CAN NOT AFFORD TO SEE A PHYSICIAN YOU CAN CHOSE FROM THE FOLLOWING [facility] INSTITUTIONS: [facility] [address] [place] [address] [facility] [address] [place] [address] [facility] [address] [place] [address] Additional Instructions: Call your primary care doctor TOMORROW for an appointment during the next 1-2 days.See the doctor sooner or return here if your condition worsens before your appointment time. Call your primary care doctor TOMORROW for an appointment during the next 2-3 days.Tell the social secretary that you were referred from this facility. See the doctor sooner or return here if your condition worsens before your appointment time. CEE CARBONE PA-C Aug 04, 2017 02:57 AGATHA THOMPSON MD Aug 04, 2017 03:26
== END 2017-08-04 02:06 | disposition home or self-care (01) ==
LOC: FTE 22:45
DX: K80.20 Calculus of gallbladder without cholecystitis without obstruction (principal)
CPT/HCPCS: 36415; 76705; 80053; 83690; 85025; 85610; 85730; 96374; 96375; J2270; J2405; J7030; Z7502

== ENCOUNTER 2018-02-10 17:12 | Inpatient (IN) | END 2018-02-11 19:00 | disposition home or self-care (01) | DRG 501 ==

== ENCOUNTER 2018-12-21 07:30 | Inpatient (IN) | payer OTHER ==
[~2018-12-21] VITALS: Ht 147.3 cm; Wt 63.1 kg
[~2018-12-21 07:30] MED LIST changes: +DOCU-144 PO; +HYDR-4011 PO; +ONDA4TAB14 PO; +PHENYLephrine 10 MG INJ ONE
[2018-12-21 15:09] VITALS: Ht 147.3 cm; Wt 63.1 kg
[2018-12-21 15:10] VITALS: BP 111/66; PULSE 85; RESP 18
[2018-12-21] MEDS ORDERED: OXYTOCIN 30 UNITS/LR 500 ML IV SCH ×2 (15:30→20:32)
[2018-12-21] MEDS ORDERED: MISOPROSTOL 200 MCG TAB PR PRN ×2 (15:30→21:00)
[2018-12-21] MEDS ORDERED: CARBOPROST 250 MCG INJ IM PRN ×2 (15:30→21:00)
[2018-12-21] MEDS ORDERED: METHYLERGONOVINE 0.2 MG INJ IM PRN ×2 (15:30→21:00)
[2018-12-21] MEDS ORDERED: OXYTOCIN 30 UNITS/LR 500 ML IV PRN ×2 (15:30→21:00)
--- NOTE | 2018-12-21 16:27 | PREAC ---
Date/Time of Note Date/Time of Note DATE: 12/21/18 TIME: 16:26 Anesthesia Eval and Record Evaluation Time Pre-Procedure Interview DATE: 12/21/18 TIME: 16:26 Age 28 Sex female NPO: 8 hrs Preoperative diagnosis repeat c section Planned procedure c section Past Medical History Past Medical History: Includes : Gestational age: (39) Surgery & Anesthesia Issues No known issue Meds Anticoagulation: No Beta Joy within 24 hr: No Reason Beta Joy not given: Pt. not on B-Joy Reported Medications Multivit/Min/Fol Ac/Iron/Pren* ( S*) 1 Tab Tab, 1 TAB PO DAILY, TAB 08/12/15 Discontinued Scripts Docusate Sodium* (Colace*) 100 Mg Capsule, 100 MG PO DAILY, #30 CAP Prov:CHAKA CRAWFORD 02/11/18 Hydrocodone/Acetaminophen (Beckley 5-325 Tablet) 1 Each Tablet, 1 EACH PO Q6, #14 TAB Prov:CHAKA CRAWFORD 02/11/18 Ondansetron (Ondansetron Odt) 4 Mg Tab.rapdis, 4 MG PO Q6H PRN for NAUSEA AND/OR VOMITING, #15 TAB Prov:CEE CARBONE PA-C 08/04/17 Hydrocodone/Acetaminophen (Beckley 5-325 Tablet) 1 Each Tablet, 1 TAB PO Q6H PRN for PAIN, #15 TAB Prov:CEE CARBONE PA-C 08/04/17 Current Medications Lactated Ringer's 1,000 ml @ 125 mls/hr Q8H IV ; Start 12/21/18 at 15:13 Oxytocin/Lactated Ringer's 500 ml @ 125 mls/hr POST IV ; Start 12/21/18 at 15:30 Oxytocin/Lactated Ringer's 500 ml @ 0 mls/hr ONCE PRN IV .VAGINAL BLEEDING; Start 12/21/18 at 15:30 Methylergonovine Maleate (Methergine) 0.2 mg ONCE PRN IM .VAGINAL BLEEDING; Start 12/21/18 at 15:30 Carboprost Tromethamine (Hemabate) 250 mcg ONCE PRN IM .VAGINAL BLEEDING; Start 12/21/18 at 15:30 Misoprostol (Cytotec) 1,000 mcg ONCE PRN UT .VAGINAL BLEEDING; Start 12/21/18 at 15:30 Meds reviewed: Yes Allergies Coded Allergies: No Known Allergy (Unverified , 12/21/18) Allergies Reviewed: Yes Labs/Studies Labs Reviewed: Reviewed by anesthesiologist Result Diagram: 12/21/18 1500 Laboratory Tests 12/21/18 15:00 Blood Bank Test 12/21/18 15:00 Blood Type A POSITIVE Rh Immune Globulin Candidate NO test: Positive Studies: ECG (n/a), CXR (n/a) Pre-procedure Exam Last vitals Vital Signs Date Temp Pulse Resp B/P (MAP) Pulse Ox O2 O2 Flow FiO2 Time Delivery Rate 12/21/18 98.2 85 18 111/66 Room Air 15:10 (81) Airway: Adequate mouth opening Mallampati: Mallampati I Teeth: Normal Lung: Normal Heart: Normal ASA Physical Status ASA physical status: 2 Emergency: None Planned Anesthetic Neuraxial: Spinal Planned Pain Management Sub-arachniod narcotics Pre-operative Attestations Prior to commencing anesthesia and surgery, the patient was re-evaluated, there was verification of: *The patient's identity *The results of appropriate recent lab work and preoperative vital signs *The above evaluation not changing prior to induction *Anesthetic plan, risk benefits, alternative and complications discussed with patient/family; questions answered; patient/family understands, accepts and wishes to proceed. GABI MARSH MD Dec 21, 2018 16:27
[2018-12-21] MEDS: LACTATED RINGER'S 1,000 ML IV SCH ×2 (16:29→17:44)
[2018-12-21] MEDS ORDERED: AMPICILLIN 2 GM/NS (PMX) 100 ML IVPB ONE (16:30)
[2018-12-21] MEDS ORDERED: AMPICILLIN 2 GM/NS (PMX) 100 ML ONE (16:35)
[2018-12-21] MEDS ORDERED: CEFAZOLIN 2 GM/50 ML (PMX) 50 ML IVPB ONE (17:00)
[2018-12-21] MEDS ORDERED: CITRIC ACID/NA CITRATE 30 ML CUP PO ONE (17:00)
[2018-12-21] MEDS ORDERED: KETOROLAC 30 MG INJ ONE (19:18)
[2018-12-21] MEDS ORDERED: morphine SULFATE/PF (10 MG/10 ML) INJ ONE (19:18)
[2018-12-21] MEDS ORDERED: METOCLOPRAMIDE 10 MG INJ ONE (19:18)
[2018-12-21] MEDS ORDERED: OXYTOCIN 30 UNITS/LR 500 ML IV ONE (19:18)
[2018-12-21] MEDS ORDERED: ONDANSETRON 4 MG INJ ONE (19:18)
[2018-12-21] MEDS ORDERED: FENTAnyl 50 MCG/ML VIAL ONE (19:53)
[2018-12-21] MEDS ORDERED: PROPOFOL 20 ML ONE (19:55)
[2018-12-21] MEDS ORDERED: AMPICILLIN 1 GM/NS (PMX) 50 ML IVPB SCH (20:30)
--- NOTE | 2018-12-21 20:32 | OPPN ---
Date/Time of Note Date/Time of Note DATE: 12/21/18 TIME: 20:30 Operative Report Planned Procedure Procedure date Dec 21, 2018 Procedure(s) repeat low transverse CD Performed by see signature line Wire Coiler Machine Operator: CINDY RICARDO MD 2nd Wire Coiler Machine Operator none Anesthesiologist: GABI MARSH MD Pre-procedure diagnosis iup at 39 wks ga, previous CD X 2 desire elective repeat CD, decline [id number] Anesthesia Type: [id number] spinal Post-Procedure Post-procedure diagnosis same Findings a viable male 8/9, weight 9lb 6 oz. normal uterus tubes and ovaries. abdominal rectus muscle not visualized Estimated Blood Loss: 500 - 600 mls Specimen(s) none Grafts/Implant(s) none Complication(s) none KURT RUSHING MD Dec 21, 2018 20:32
[2018-12-21] MEDS ORDERED: CEFAZOLIN 2 GM/50 ML (PMX) 50 ML IVPB SCH (21:00)
[2018-12-21] MEDS ORDERED: OXYCODONE/ACETAMINOPHEN (5/325) TAB PO PRN (21:00)
[2018-12-21] MEDS ORDERED: LANOLIN HPA 1 PKT TOP PRN (21:00)
[2018-12-21] MEDS ORDERED: NACL 0.9% 3 ML SYG IV SCH (21:00)
[2018-12-21] MEDS ORDERED: NALOXONE (0.4 MG/ML) INJ IV PRN (22:00)
[2018-12-21] MEDS ORDERED: morphine 2 MG INJ IV PRN ×3 (22:00)
[2018-12-21] MEDS ORDERED: morphine (1 MG/ML) 10ML SYRINGE IV PRN ×3 (22:00)
[2018-12-21] MEDS ORDERED: KETOROLAC 30 MG INJ IV PRN (22:00)
[2018-12-21] MEDS ORDERED: DIPHENHYDRAMINE 50 MG INJ IV PRN (22:00)
[2018-12-21] MEDS ORDERED: ONDANSETRON 4 MG INJ IV PRN ×2 (22:00)
[2018-12-22] VITALS: BP 108/65; PULSE 69; RESP 20
[2018-12-22 04:09] VITALS: BP 110/68; PULSE 70; RESP 20
--- NOTE | 2018-12-22 04:19 | OPR ---
DATE OF OPERATION: 12/21/2018 PREOPERATIVE DIAGNOSES: Intrauterine at 39 weeks' gestational age. Previous x2, desires elective repeat delivery, declined vaginal after . POSTOPERATIVE DIAGNOSES: Intrauterine at 39 weeks' gestational age. Previous x2 , desires elective repeat delivery, declined vaginal after . OPERATION PERFORMED: Repeat low transverse delivery. SURGEON: Ken Thorpe MD TELESALES CONSULTANT: Helen Gregory MD ANESTHESIA: Spinal. COMPLICATIONS: None. ESTIMATED BLOOD LOSS: 500 mL FINDINGS: A viable male, 8 and 9, respectively at 1 and 5 minutes, weight 9 pounds 6 ounces. Normal uterus, tubes and ovaries. However, rectus abdominis muscles were not visualized. DESCRIPTION OF PROCEDURE: After explaining the risks, benefits and alternatives, the patient had con sent signed in the chart. The patient was taken to the operating room where spinal anesthesia was fo und to be adequate. She was then prepared and draped in normal sterile fashion in dorsal supine posi tion with a leftward tilt. A Pfannenstiel skin incision was then made with a scalpel and carried to the underlying fascia. The fascia was incised in the midline and incision was extended laterally wit h Woo scissors. At this point, the bladder blade was inserted and the lower uterine segment was inc ised in transverse fashion with the scalpel. The uterine incision was extended laterally. The bladd er blade was removed and the 's head was delivered atraumatically. The nose and mouth were suc tioned and cord was clamped and cut. The infant was handed off to waiting NICU team. The placenta w as then removed. The uterus was exteriorized and cleared of all clots and debris. The uterine incis ion was repaired with 1-0 chromic in a running locking fashion. A second layer of same suture was us ed for imbrication obtaining excellent hemostasis. The uterus was returned to the abdomen. The gutt ers were cleared of all clots. The fascia was reapproximated with 0 PDS in a running fashion. The s ubcutaneous tissue was reapproximated with a 2-0 plain gut in a running fashion. The skin was closed with marva. The patient tolerated the procedure well. Sponge, lap and needle counts were correct . The patient was taken to recovery in stable condition. Dictated By: KEN FITZGERALD/ARI Conf#: [id number] DID#: [id number]
--- NOTE | 2018-12-22 06:50 | PAC ---
Date/Time of Note Date/Time of Note DATE: 12/22/18 TIME: 06:50 Post-Anesthesia Notes Post-Anesthesia Note Last documented vital signs Vital Signs Date Temp Pulse Resp B/P (MAP) Pulse Ox O2 O2 Flow FiO2 Time Delivery Rate 12/22/18 97.8 70 20 110/68 99 Room Air 04:09 (82) Activity: WNL Respiratory function: WNL Cardiovascular function: WNL Mental status: Baseline Pain reasonably controlled: Yes Hydration appropriate: Yes Nausea/Vomiting absent: No GABI MARSH MD Dec 22, 2018 06:50
--- NOTE | 2018-12-22 06:51 | OPPN ---
Date/Time of Note Date/Time of Note DATE: 12/22/18 TIME: 06:50 Anesthesia Follow up Anesthesia Follow up Last documented vital signs Vital Signs Date Temp Pulse Resp B/P (MAP) Pulse Ox O2 O2 Flow FiO2 Time Delivery Rate 12/22/18 97.8 70 20 110/68 99 Room Air 04:09 (82) Respiratory function: WNL Cardiovascular function: WNL Comments A 27 year female s/p duramorph for post op apin POD #1 is fine. No pain, headache, itching, N/V. neural deficit. GABI MARSH MD Dec 22, 2018 06:51
[2018-12-22 07:30] VITALS: BP 97/69; PULSE 69; RESP 17
[2018-12-22] MEDS: CEFAZOLIN 2 GM/50 ML (PMX) 50 ML IVPB SCH ×3 (08:26→16:09)
[2018-12-22] MEDS: SENNA/DOCUSATE NA (8.6MG/50MG) TAB PO SCH ×2 (08:26→20:51)
[2018-12-22] MEDS: LACTATED RINGER'S 1,000 ML IV SCH ×2 (10:27→18:00)
[2018-12-22] MEDS: KETOROLAC 30 MG INJ IV PRN ×2 (12:32→17:52)
[2018-12-22 15:23] VITALS: BP 100/60; PULSE 76; RESP 18
--- NOTE | 2018-12-22 16:34 | QN ---
Documentation Comment called for H&H reult which is 6.10/30 patient has no subjective symptoms such as diziness ar SOB or palpitation VSS afebele abdomen soft wound dry calf neg for tenderness lochia min A s/p R c/s #1 severe anemia P repeat H&H instruct to get up with assist MACY DENT MD Dec 22, 2018 16:34
[2018-12-22 19:40] VITALS: BP 112/65; PULSE 70; RESP 19
[2018-12-23] MEDS: IBUPROFEN 600 MG TAB PO SCH ×5 (00:22→23:57)
[2018-12-23] MEDS: OXYCODONE/ACETAMINOPHEN (5/325) TAB PO PRN ×6 (00:57→21:41)
[2018-12-23] MEDS: LACTATED RINGER'S 1,000 ML IV SCH (02:00)
[2018-12-23 04:00] VITALS: BP 112/58; PULSE 82; RESP 19
[2018-12-23 07:45] VITALS: BP 98/54; PULSE 74; RESP 18
[2018-12-23] MEDS: SENNA/DOCUSATE NA (8.6MG/50MG) TAB PO SCH ×2 (08:33→21:00)
[2018-12-23] MEDS ORDERED: BISACODYL 10 MG SUPP PR ONE (12:30)
--- NOTE | 2018-12-23 15:16 | QN ---
Documentation Comment POD#1 is stable afebrile tolerates diet No VB +Flatus +voids VS stable Gen NAD Abd soft NT ND Incision intact Genitalia No blood at perineum --->Ambulation SAHIL PENA M.D. Dec 23, 2018 15:16
[2018-12-23 15:33] VITALS: BP 105/59; PULSE 70; RESP 16
[2018-12-23 19:50] VITALS: BP 95/50; PULSE 92; RESP 17
[2018-12-24] MEDS: OXYCODONE/ACETAMINOPHEN (5/325) TAB PO PRN ×3 (01:39→12:58)
[2018-12-24 04:03] VITALS: BP 101/55; PULSE 76; RESP 17
[2018-12-24] MEDS: IBUPROFEN 600 MG TAB PO SCH ×2 (06:00→11:38)
[2018-12-24 08:16] VITALS: BP 102/59; PULSE 68; RESP 18
[2018-12-24] MEDS: SENNA/DOCUSATE NA (8.6MG/50MG) TAB PO SCH (08:50)
--- NOTE | 2018-12-24 09:38 | QN ---
Documentation Comment progress note pod 3 patient seen and evaluated no compliants vs stable afebrile ab c/d/i no distention extremity no edema no calf tenderness a/ sp cs pod 3 stable afebrile p/ h/h today discharge home today if h/h is stable KURT RUSHING MD Dec 24, 2018 09:38
--- NOTE | 2018-12-24 09:40 | PD.PPDC ---
GRANITE CUTTER APPRENTICE Discharge Instruction Condition Oyrrr5Yg Patient Condition: Idtlx2u Good Diet Bcuki1Tg Diet: Kabom1y Resume Regular Diet Activity/Restrictions Tmqls4Kg Activity: Zrjdq0w Normal Activity May Shower Zfhkm5Er Restrictions: Jbdkh6x No Exercising No Lifting No Driving No Sexual Activity Nothing in the Vagina No Berger No Tampons, douche Follow-up Follow-up with Physician: 3, Day/Days Provider Information: f/u with Dr. Erickson to remove marva Return to clinic for 2 Gsaed8Rm VINEYARD TENDER Instructions: Odbus3v Fever greater than 101 Chills Worsening abdominal pain Excessive Vaginal Bleeding More than 2 pads per hour Unable to tolerate diet Thger2Pv OB Instructions: Edklj0v Breast Tenderness Depression Blurried Vision Headache Zpnfq5Oa Surgical Instructions: Nhayh9j Incisional Drainage Incisional Redness KURT RUSHING MD Dec 24, 2018 09:40
--- NOTE | 2018-12-24 10:54 | DS ---
DATE OF ADMISSION: 12/21/2018 DATE OF DISCHARGE: 12/24/2018 PRIMARY DIAGNOSIS: Intrauterine at 39 weeks gestational age. Previous x2, sravanthi es elective repeat delivery. Declined vaginal after . PROCEDURE: Repeat low transverse delivery. CONDITION ON DISCHARGE: Stable. ACTIVITY: None per vagina, no lifting x6 weeks. DIET: Regular. MEDICATIONS ON DISCHARGE: 1. Motrin. 2. Iron. 3. Colace. DISCHARGE SUMMARY: The patient underwent a repeat low transverse delivery on 12/21/2018. S he had a viable male, 8 and 9 respectively at 1 and 5 minutes, weight 9 pounds 6 ounces. She h ad an uneventful postop day 1, 2, and 3. Her incision is clean, dry, and intact. She is ambulating, tolerating diet, positive flatulence, positive bowel movement. She will follow up in the clinic in 2 to 3 days to remove her marva. Dictated By: KURT RUSHING MD ME/NTS Conf#: [id number] DID#: [id number] CC: KURT RUSHING MD;*EndCC*
--- NOTE | 2018-12-25 14:17 | DELSUM ---
Delivery Summary A-C Datetime Report Generated by CPN: 12/25/2018 14:17 DELIVERY PERSONNEL Director Digital: Dries, Maxime MATERNAL INFORMATION Delivery Anesthesia: Spinal Medications in Delivery: See Anes. Records Delivery QBL (ml): 500 Placenta Cultured: No Maternal Complications: None LABOR SUMMARY EDC: 12/27/2018 00:00 No. Babies in Womb: 1 Attempted: No Labor Anesthesia: Intrathecal LABOR INFORMATION Reason for Induction: Not Applicable Oxytocin: N/A Group B Beta Strep: Positive Antibiotics # of Doses: 2 Antibiotics Time of Last Dose: 12/21/2018 19:31 Steroids Given: None Reason Steroids Not Administered: Not Applicable MEMBRANES Membranes Rupture Method: Artificial Rupture of Membranes: 12/21/2018 19:48 Length of Rupture (hr): 0.00 Amniotic Fluid Color: Clear Amniotic Fluid Amount: Large Amniotic Fluid Odor: None STAGES OF LABOR Stage 3 hr: 0 Stage 3 min: 1 CSECTION DELIVERY Primary Indication: Repeat Elective Secondary Indication: N/A CSection Urgency: Non Elective CSection Incidence: Repeat Labor: No Labor Elective: Nonelective CSection Incision: Lower Uterine Transverse BABY A INFORMATION Delivery Date/Time: 12/21/2018 19:48 Method of Delivery: Born in Route : No : N/A Forceps: N/A Vacuum Extraction: N/A Shoulder Dystocia : N/A SHOULDER DYSTOCIA BABY A Delivery Date/Time: 12/21/2018 19:48 PRESENTATION/POSITION BABY A Presentation: Cephalic Cephalic Presentation: Vertex Vertex Position: Left Occipital Anterior Breech Presentation: N/A PLACENTA INFORMATION BABY A Placenta Delivery Time : 12/21/2018 19:49 Placenta Method of Delivery: Manual Removal Placenta Status: Delivered SCORES BABY A Heart Rate 1 min: >100 bpm Resp Effort 1 min: Good Cry Reflex Irritability 1 min: Cough/Sneeze/Pulls Away Muscle Tone 1 min: Active Motion Color 1 min: Blue/Pale Resuscitation Effort 1 min: Tactile Stimulation SCORE 1 MIN: 8 Heart Rate 5 min: >100 bpm Resp Effort 5 min: Good Cry Reflex Irritability 5 min: Cough/Sneeze/Pulls Away Muscle Tone 5 min: Active Motion Color 5 min: Body [place], Extremit Blue Resuscitation Effort 5 min: Tactile Stimulation SCORE 5 MIN: 9 INFORMATION BABY A Gestational Age at Delivery: 39.1 Gestational Status: Full Term- 39- 40.6 Weeks Infant Outcome : Liveborn Infant Condition : Stable Sex: Male IDENTIFICATION/MEDS BABY A ID Band Number: [id number] ID Band Location: Right Leg; Left Arm Sensor Applied: Yes Sensor Number: [id number] Sensor Location : Cord Clamp Vitamin K Given : Not Given Erythromycin Given: Not Given WEIGHT/LENGTH BABY A Infant Birthweight (gm): 4255 Infant Weight (lb): 9 Infant Weight (oz): 6 Length (in): 21.50 Infant Length (cm): 54.61 CORD INFORMATION BABY A No. Cord Vessels: 3 Nuchal Cord : Around Neck x1, Loose Cord Blood Taken: Yes Suction: Mouth; Nose ASSESSMENT BABY A Infant Complications: None Physical Findings at Delivery: Within Normal Limits Respirations: Appears Normal Yard Operator/ALS Called : No Infant Care By: Bret RIVAS RN Transferred To: Remains with Mother
== END 2018-12-24 13:10 | disposition home or self-care (01) | DRG 788 ==
LOC: L-D 14:09 → PP1 12-22 00:03
PROVIDERS: ADMIT Obstetrics & Gynecology; ATTEND Obstetrics & Gynecology
PROC: 10D00Z1 Extraction of Products of Conception, Low, Open Approach (ICD-10-PCS; principal; 2018-12-21 17:00)
DX: O34.211 Maternal care for low transverse scar from previous cesarean delivery (principal); O90.81 Anemia of the puerperium; Z3A.39 39 weeks gestation of pregnancy; Z37.0 Single live birth
CPT/HCPCS: 85014; 85018; 85025; 85610; 85730; 86592; 86850; 86900; 86901; 87340; 99464; J0290; J0690; J1200; J1885; J2274; J2405; J2590; J2765; J3010; J7120